=== PATIENT | female | born 2000 | race Caucasian/White ===

== ENCOUNTER 2024-09-09 12:27 | Inpatient (IN) | payer MEDICARE, SELFPAY ==
[2024-09-09 12:43] VITALS: BP 159/98; BMI 44.0
[2024-09-09] MEDS: CYTOTEC 25 MICROGRAM VAG (13:30)
[2024-09-09 13:46] LABS: % Basophils 0.5 % (0-2); % Eosinophils 1.1 % (0-6); % Lymphocytes 20.5 % (20.5-51.1); % Neutrophils 70.9 % (42.2-75.2); Absolute Basophils 0.1 10^3/uL (0-0.2); Absolute Eosinophils 0.1 10^3/uL (0-0.7); Absolute Immature Granulocytes 0.1 10^3/uL (0-0.05); Absolute Lymphocytes 2.4 10^3/uL (1.2-3.4); Absolute Monocytes 0.7 10^3/uL (0.1-0.6); Absolute Neutrophils 8.2 10^3/uL (1.4-6.5); Hemoglobin 13.2 g/dL (12.0-16.0); Mean Corp Hgb Conc. 33.8 g/dL (33.0-37.0); Mean Corpuscular Volume 82.6 fL (81.0-99.0); Mean Platelet Volume 10.3 fL (7.4-10.4); Nucleated Red Blood Cells % 0 %; Platelet Count 192 10^3/uL (130-400); Red Blood Cell Count 4.72 10^6/uL (4.20-5.40); White Blood Cell Count 11.5 10^3/uL (4.8-10.8)
[2024-09-09 13:58] LABS: ALT (SGPT) 24 U/L (0-35); AST (SGOT) 28 U/L (14-36); Albumin 3.2 g/dl (3.5-5.0); Alkaline Phosphatase 231 U/L (38-126); Blood Urea Nitrogen 9 mg/dl (7-17); Calcium 9.4 mg/dl (8.4-10.2); Carbon Dioxide 18 mmol/L (22-30); Chloride 108 mmol/L (98-107); Estimated Creatinine Clearance > 125 ml/min; Glucose 87 mg/dl (70-99); Potassium 4.2 mmol/L (3.5-5.1); Sodium 135 mmol/L (135-145); Total Bilirubin 0.3 mg/dl (0.2-1.3); Total Protein 6.1 g/dl (6.3-8.2); eGFR > 60.00
[2024-09-09 15:24] LABS: Protein/creatinine Ratio 10.3; Urine Protein 737 mg/dl
[2024-09-09 17:03] LABS: HIV Combo Negative (Negative)
[2024-09-09] MEDS: CYTOTEC 50 MICROGRAM PO (18:39)
[2024-09-10] MEDS: PITOCIN 30 UNITS/NSS 500 ML IV (00:09)
[2024-09-10] MEDS: LR 1000 IV ×2 (00:10→04:15)
[2024-09-10] MEDS: MAGNESIUM SULFATE 100 IV (04:14)
[2024-09-10 04:33] LABS: Hematocrit 40.9 % (37.0-47.0); Hemoglobin 13.9 g/dL (12.0-16.0); Mean Corpuscular Volume 82.5 fL (81.0-99.0); Mean Platelet Volume 10.4 fL (7.4-10.4); Platelet Count 205 10^3/uL (130-400); Red Blood Cell Count 4.96 10^6/uL (4.20-5.40); Red Cell Dist. Width 13.2 % (11.5-14.5); White Blood Cell Count 15.7 10^3/uL (4.8-10.8)
[2024-09-10] MEDS: MAGNESIUM SULFATE 40 GRAM 1000 IV (04:35)
[2024-09-10] MEDS: CYTOTEC PO ×2 (04:42)
[2024-09-10 05:03] LABS: ALT (SGPT) 23 U/L (0-35); AST (SGOT) 26 U/L (14-36); Albumin 3.1 g/dl (3.5-5.0); Alkaline Phosphatase 250 U/L (38-126); Blood Urea Nitrogen 8 mg/dl (7-17); Calcium 9.3 mg/dl (8.4-10.2); Carbon Dioxide 22 mmol/L (22-30); Chloride 107 mmol/L (98-107); Estimated Creatinine Clearance > 125 ml/min; Glucose 71 mg/dl (70-99); Potassium 3.9 mmol/L (3.5-5.1); Sodium 136 mmol/L (135-145); Total Bilirubin 0.4 mg/dl (0.2-1.3); Total Protein 6.2 g/dl (6.3-8.2); eGFR > 60.00
[2024-09-10] MEDS: TRANDATE 20 MG IV (05:16)
[2024-09-10] MEDS: TRANDATE 40 MG IV (05:40)
[2024-09-10] MEDS: TRANDATE 60 MG IV (06:52)
[2024-09-10] MEDS: FENTANYL/BUPIVACAINE 100 EPIDURAL (08:26)
[2024-09-10] MEDS: SUBLIMAZE 100 MCG EPIDURAL (08:26)
[2024-09-10] MEDS: TYLENOL 1000 MG PO (09:51)
[2024-09-10] MEDS: BICITRA 30 ML PO (09:52)
[2024-09-10 10:58] LABS: Cord ABG Comment CORD BLOOD
[2024-09-10 11:01] LABS: B.E. Cord ABG -4.5 mMOL/L; HCO3 Cord ABG 21.7 mmol/L; O2 Saturation % Cord ABG 44.5 %; PCO2 Cord ABG 43 mmHg; PO2 Cord ABG 21 mmHg; pH Cord ABG 7.31
[2024-09-10] MEDS: TORADOL 15 MG IV ×2 (18:20→23:47)
[2024-09-10] MEDS: FLUSH (NSS) 3 FLUSH IV (23:50)
[2024-09-11] MEDS: LR 1000 IV (00:09)
[2024-09-11] MEDS: MAGNESIUM SULFATE 40 GRAM 1000 IV (02:02)
[2024-09-11] MEDS: TORADOL 15 MG IV ×2 (05:31→11:05)
[2024-09-11] MEDS: FLUSH (NSS) 3 FLUSH IV (05:32)
[2024-09-11 07:30] LABS: Hematocrit 36.2 % (37.0-47.0); Hemoglobin 12.4 g/dL (12.0-16.0); Mean Corp Hgb Conc. 34.3 g/dL (33.0-37.0); Mean Corpuscular Hgb 28.2 pg (27.0-31.0); Mean Corpuscular Volume 82.5 fL (81.0-99.0); Mean Platelet Volume 9.9 fL (7.4-10.4); Platelet Count 197 10^3/uL (130-400); Red Blood Cell Count 4.39 10^6/uL (4.20-5.40); Red Cell Dist. Width 13.4 % (11.5-14.5); White Blood Cell Count 18.2 10^3/uL (4.8-10.8)
[2024-09-11 08:02] LABS: ALT (SGPT) 18 U/L (0-35); AST (SGOT) 22 U/L (14-36); Albumin 2.7 g/dl (3.5-5.0); Alkaline Phosphatase 193 U/L (38-126); Blood Urea Nitrogen 10 mg/dl (7-17); Calcium 7.6 mg/dl (8.4-10.2); Carbon Dioxide 23 mmol/L (22-30); Chloride 107 mmol/L (98-107); Estimated Creatinine Clearance > 125 ml/min; Glucose 89 mg/dl (70-99); Potassium 4.1 mmol/L (3.5-5.1); Sodium 136 mmol/L (135-145); Total Bilirubin 0.3 mg/dl (0.2-1.3); Total Protein 5.4 g/dl (6.3-8.2); eGFR > 60.00
[2024-09-11] MEDS: SENOKOT-S 1 TABLET PO (08:43)
[2024-09-11] MEDS: PRENATAL PLUS 1 TABLET PO (08:43)
[2024-09-11] MEDS: TRANDATE 200 MG PO ×2 (08:43→20:04)
--- NOTE | 2024-09-11 11:54 | W.PN.ANS.POP ---
Anesthesia Post Operative
- Anesthesia Post Op Note
Vital Signs Stable-See Nursing Note: Yes
Airway Patent: Yes
Adequate Pain Control: Yes
Change in Mental Status: No
Current Postoperative Nausea & Vomiting: No
Anesthesia Complications: No
General Anesthetic Recall: No
Unplanned Admission: No
Post Op Hydration Adequate: Yes
[2024-09-11] MEDS: MOTRIN 600 MG PO (17:06)
[2024-09-12] MEDS: TRANDATE 200 MG PO (07:56)
[2024-09-12] MEDS: PRENATAL PLUS 1 TABLET PO (07:56)
[2024-09-12] MEDS: SENOKOT-S 1 TABLET PO (07:57)
[2024-09-12] MEDS: TRANDATE 400 MG PO (19:57)
[2024-09-12] MEDS: MOTRIN 600 MG PO (19:57)
[2024-09-13] MEDS: SENOKOT-S 1 TABLET PO (08:09)
[2024-09-13] MEDS: PRENATAL PLUS 1 TABLET PO (08:09)
[2024-09-13] MEDS: TRANDATE 400 MG PO (08:10)
[2024-09-13] MEDS: MYLICON 80 MG PO (08:10)
--- NOTE | 2024-09-13 11:00 | CON.CAR ---
Addendum entered and electronically signed by Baljinder Mcdonnell MD 09/13/24 17:22:
I saw and examined the patient.
The COVER MACHINE OPERATOR's note was reviewed and I agree with the note.
Comment: Agree with labetalol. Reviewed importance of frequent home BP checks with proper technique. I reviewed warning signs of high and low BP. I reviewed therapeutic lifestyle modification for HTN management and reviewed her increased risk of
HTN in the future. Goal BP is less than 140/90 for now and we are close. Will arrange f/u in our office.
Original Note:
Consultation
Consultation Request
Date/Time Consultation Requested: 09/13/2024 10:15
Date/Time Consultation Performed: 09/13/2024 10:45
Requesting Provider: Dr. Tyrese Garcia
Performing Provider: KIANA Sheppard for Dr. Mcdonnell
Reason for Consultation: Preeclampsia
Medical History
-
Chief Complaint: Oligohydramnios
History of Present Illness:
Shazia Pickard is a 24-year-old female, who presented at 37 weeks 4 days gestation for induction of labor due to oligohydramnios. She was started on Cytotec for cervical ripening and then had severe blood pressures criteria for preeclampsia with
severe features. She was given a magnesium 4G IV bolus followed by 2G hour. She required several doses of intravenous labetalol during her labor due to her persistently elevated blood pressures. She then had a heart rate deceleration which
lasted several minutes requiring scalp electrode. She had late decelerations with her contractions at 5 cm dilation. She then underwent a section with EBL 514 mL without any complications. She is currently on labetalol 400 mg twice
daily and her blood pressure is not yet at goal. Cardiology was consulted for blood pressure management.
Past Medical History
Past Medical History: Psychiatric (Anxiety/depression)
Past Surgical History: None
Social History
Personal: Single
Living: With Family
Employment: Employed
Family History
Family History: Reviewed & Not Pertinent (Denies early CAD and SCD.)
Allergies / Home Medications
Allergy/AdvReac Type Severity Reaction Status Date / Time
latex Allergy Hives Verified 09/10/24 04:05
�Medication �Instructions �Recorded �Confirmed �Type
prenat.vits,jose j,kpv-rzlk-[id number] 1 tab PO DAILY 09/09/24 09/09/24 History
Review of Systems
-
History Source: Patient
All other systems: Negative unless noted
Constitutional: No Symptoms
EENT: No Symptoms
Respiratory: No Symptoms
Cardiac: No Symptoms
Abdomen/GI: No Symptoms
: No Symptoms
Musculoskeletal: No Symptoms
Skin: No Symptoms
Neurological: No Symptoms
Endocrine: No Symptoms
Hematologic/Lymphatic: No Symptoms
Physical Exam
Vital Signs
Temp Pulse Resp BP
98.3 F 83 18 167/102
09/09/24 12:43 09/13/24 08:10 09/09/24 12:43 09/13/24 08:10
Lab Results
09/11/24 07:20
09/11/24 07:20
Physical Exam
General: Well Developed, Well Nourished, No Apparent Distress and Comfortable
HEENT: Normocephalic, Anicteric and Moist Mucous Membranes
Respiratory: Clear and Non Labored Respirations
Cardiac: S1/S2
Breast: Deferred by me
GI: Soft, Non Tender, Non Distended and Normal Bowel Sounds
Rectal: Deferred by Provider
Genito-urinary: No Costovertebral Tender
Musculoskeletal: No Clubbing, No Cyanosis and Edema (+1 BL LE)
Skin: Warm and Dry
Neuro: AO x 3
Hematologic/Lymphatic: No Lymphadenopathy
Psych: Calm
Impression / Plan
-
I/P: 24F who presented at 37 weeks 4 days gestation for induction of labor due to oligohydramnios. Developed preeclampsia with severe features.
Preeclampsia with severe features
- Completed magnesium
- Denies headache, visual disturbances, and oliguria
- Currently on labetalol 400 mg twice daily, BP above goal
- Nifedipine 30 mg daily may decrease BP too much, may need to decrease labetalol to 200mg BID
- EKG and echocardiogram
- She does not have a blood pressure cuff at home but will obtain one
section 09/10/2024 without surgical complication
Anxiety/depression, chronic, stable
Obesity, BMI 44, she would benefit from weight loss
[2024-09-13 14:14] LABS: Syphilis/T. pallidum Ab Reflex Negative (Negative)
== END 2024-09-13 15:56 | disposition home or self-care (01) | DRG 788 ==
LOC: LDRP 12:27
PROVIDERS: Obstetrics & Gynecology; ADMITTING PHYSICIAN Student in an Organized Health Care Education/Training Program; CONSULT PHYSICIAN Internal Medicine Cardiovascular Disease
PROC: 10D00Z1 Extraction of Products of Conception, Low, Open Approach (ICD-10-PCS; 2024-09-10)
DX: O41.03X0 Oligohydramnios, third trimester, not applicable or unspecified (principal); Z3A.37 37 weeks gestation of pregnancy; Z37.0 Single live birth; O76 Abnormality in fetal heart rate and rhythm complicating labor and delivery; O14.14 Severe pre-eclampsia complicating childbirth
CPT/HCPCS: 88307; 80053; 82570; 82803; 84156; 85025; 85027; 86780; 86850; 86900; 86901; 87389; 93005; 93306; 99406